=== PATIENT | male | born 1970 | race Caucasian/White ===

== ENCOUNTER 2017-05-08 15:46 | Emergency (ER) | payer OTHER ==
[~2017-05-08] VITALS: Ht 175.3 cm; Wt 100.0 kg
[2017-05-08 15:48] VITALS: TEMP 36.4; Ht 175.3 cm; Wt 100.0 kg
[2017-05-08] MEDS ORDERED: ASPIRIN 81 MG CHEW PO STA (15:56)
--- NOTE | 2017-05-08 16:05 | EMERGENCY ROOM VISIT NOTE ---
History Report prepared by H[place]yin: Tierney Brice Under the Supervision of: Dr. Corby Hahn D.O. 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 The patient describes the pain as achy. He reports he got "a weird feeling all over his body and thought he was going to throw up." He denies any calf pain or abdominal pain, He states he has had head pain, thigh pain, and arm pain since last night. 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 Positive head pain, thigh pain, and arm pain. Review of Systems See HPI for pertinent positives & negatives. A total of 10 systems reviewed and were otherwise negative. Family History No pertinent family history Social History Smoking Status: Unknown if Ever Smoked Smokeless Tobacco Use: Yes Occupation Status: employed Current/Historical Medications Scheduled Buprenorphine Hcl-Naloxone Hcl (Suboxone 8-2 Mg), 1 DOSE UT BID Duloxetine Hcl (Cymbalta), 60 MG PO DAILY Allergies Coded Allergies: BEE STING (Verified Allergy, Unknown, Unknown, 05/08/17) Physical Exam Vital Signs Date Time Temp Pulse Resp B/P (MAP) Pulse Ox O2 Delivery O2 Flow Rate FiO2 05/08/17 19:48 76 20 132/82 98 05/08/17 17:41 76 20 132/82 98 Nasal Cannula 2.0 05/08/17 16:57 79 05/08/17 16:22 97 Nasal Cannula 2.0 05/08/17 16:09 88 20 141/99 93 Room Air 05/08/17 16:07 100 Room Air 05/08/17 16:04 100 Room Air 05/08/17 15:48 36.4 71 18 144/109 96 Room Air Physical Exam GENERAL: Patient is awake, alert, and in no acute distress. Patient is resting comfortably and is slightly anxious. EYES: The conjunctivae are clear. The pupils are round and reactive. EARS, NOSE, MOUTH AND THROAT: The nose is without any evidence of any deformity. Mucous membranes are moist tongue is midline NECK: The neck is nontender and supple. RESPIRATORY: Normal respiratory effort is noted there is no evidence of wheezing rhonchi or rales CARDIOVASCULAR: Regular rate and rhythm noted there no murmurs rubs or gallops normal S1 normal S2 GASTROINTESTINAL: The abdomen is soft. Bowel sounds are present in all quadrants. Abdomen is nontender MUSCULOSKELETAL/EXTREMITIES: There is no evidence of gross deformity full range of motion is noted in the hips and shoulders SKIN: Tenderness to the medial aspect of the left upper thigh. No erythema was noted. No calf tenderness or pedal edema appreciated. Pulses were symmetric in the lower extremities. . NEUROLOGIC: Patient is awake alert and oriented x3 strength is symmetric patellar reflexes are 2+ bilaterally Medical Decision & Procedures ER Provider Diagnostic Interpretation: Radiology results as stated below per my review and radiologist interpretation: VENOUS DOPP LOWER EXT UNILAT CLINICAL HISTORY: 46 years-old Male presenting with left thigh pain. TECHNIQUE: Real-time grayscale and color and spectral Doppler ultrasound imaging of the veins of the left lower extremity was performed. Compression and augmentation were also utilized. COMPARISON: None. FINDINGS: Left: Common femoral vein: Patent. Greater saphenous vein: Patent. Deep femoral vein: Patent. Femoral vein: Patent. Popliteal vein: Patent. Calf veins: Patent. Other: None. IMPRESSION: No evidence of deep venous thrombosis. Electronically signed by: Kayden Aponte M.D. 05/08/2017 4:44 PM Dictated Date/Time: 05/08/2017 4:44 PM CHEST ONE VIEW PORTABLE CLINICAL HISTORY: 46 years-old Male presenting with EVALUATE RESPIRATORY DISTRESS.DYSPNEA. TECHNIQUE: Portable upright AP view of the chest was obtained. COMPARISON: None. FINDINGS: Cardiomediastinal silhouette normal. Lungs and pleural spaces clear. Osseous structures normal. Upper abdomen normal. IMPRESSION: 1. No acute cardiopulmonary disease. Electronically signed by: Kayden Aponte M.D. 05/08/2017 4:11 PM Dictated Date/Time: 05/08/2017 4:11 PM L LOWER EXTREMITY WITH CLINICAL HISTORY: left thigh pain trauma. Pain. TECHNIQUE: Transaxial acquisition with multi axial reformatted images. COMPARISON STUDY: None FINDINGS: Small cortical evulsion from the lateral superior aspect of the anterior acetabulum. Fragment measures 6 x 4 mm. No additional acute bony abnormality is identified. All major soft tissue structures are unremarkable. The bladder is midline. No free fluid is seen within the pelvic cul-de-sac. Muscular and osseous structures 5. Unremarkable. Left hip specifically is unremarkable. IMPRESSION: 1. Small cortical evulsion from the lateral superior aspect of the anterior acetabulum. 2. The cortical fragment measures 6 x 4 mm. 3. All remaining components of the study are unremarkable. The above report was generated using voice recognition software. It may contain grammatical, syntax or spelling errors. Electronically signed by: Leo Michelle M.D. 05/08/2017 5:45 PM Dictated Date/Time: 05/08/2017 5:37 PM Laboratory Results 05/08/17 16:02 Red Blood Count 5.15, Mean Corpuscular Volume 90.3, Mean Corpuscular Hemoglobin 32.6, Mean Corpuscular Hemoglobin Concent 36.1, Mean Platelet Volume 8.8, Neutrophils (%) (Auto) 54.3, Lymphocytes (%) (Auto) 36.5, Monocytes (%) (Auto) 7.3, Eosinophils (%) (Auto) 1.2, Basophils (%) (Auto) 0.2, Neutrophils # (Auto) 6.21, Lymphocytes # (Auto) 4.17, Monocytes # (Auto) 0.84, Eosinophils # (Auto) 0.14, Basophils # (Auto) 0.02 05/08/17 16:02 Test 05/08/17 16:02 05/08/17 16:05 White Blood Count 11.44 K/uL (4.8-10.8) Red Blood Count 5.15 M/uL (4.7-6.1) Hemoglobin 16.8 g/dL (14.0-18.0) Hematocrit 46.5 % (42-52) Mean Corpuscular Volume 90.3 fL (80-100) Mean Corpuscular Hemoglobin 32.6 pg (25-34) Mean Corpuscular Hemoglobin Concent 36.1 g/dl (32-36) Platelet Count 259 K/uL (130-400) Mean Platelet Volume 8.8 fL (7.4-10.4) Neutrophils (%) (Auto) 54.3 % Lymphocytes (%) (Auto) 36.5 % Monocytes (%) (Auto) 7.3 % Eosinophils (%) (Auto) 1.2 % Basophils (%) (Auto) 0.2 % Neutrophils # (Auto) 6.21 K/uL (1.4-6.5) Lymphocytes # (Auto) 4.17 K/uL (1.2-3.4) Monocytes # (Auto) 0.84 K/uL (0.11-0.59) Eosinophils # (Auto) 0.14 K/uL (0-0.5) Basophils # (Auto) 0.02 K/uL (0-0.2) RDW Standard Deviation 43.3 fL (36.4-46.3) RDW Coefficient of Variation 13.2 % (11.5-14.5) Immature Granulocyte % (Auto) 0.5 % Immature Granulocyte # (Auto) 0.06 K/uL (0.00-0.02) Erythrocyte Sedimentation Rate 23 mm/hr (0-14) Prothrombin Time 10.0 SECONDS (9.0-12.0) Prothromb Time International Ratio 1.0 (0.9-1.1) Activated Partial Thromboplast Time 24.5 SECONDS (21.0-31.0) Partial Thromboplastin Ratio 0.9 Anion Gap 7.0 mmol/L (3-11) Est Creatinine Clear Calc Drug Dose 140.9 ml/min Estimated GFR () 127.2 Estimated GFR (Non- 109.8 BUN/Creatinine Ratio 16.1 (10-20) Calcium Level 9.0 mg/dl (8.5-10.1) Total Bilirubin 0.5 mg/dl (0.2-1) Aspartate Amino Transf (AST/SGOT) 16 U/L (15-37) Alanine Aminotransferase (ALT/SGPT) 33 U/L (12-78) Alkaline Phosphatase 90 U/L (45-117) C-Reactive Protein 2.36 mg/dl (0-0.29) Total Protein 7.7 gm/dl (6.4-8.2) Albumin 3.8 gm/dl (3.4-5.0) Globulin 3.9 gm/dl (2.5-4.0) Albumin/Globulin Ratio 1.0 (0.9-2) Bedside D-Dimer 279 ng/mlFEU (0-450) Bedside Troponin I < 0.030 ng/ml (0-0.045) Laboratory results per my review. Medications Administered Medications (Trade) Dose Ordered Sig/Daniel Route Start Time Stop Time Status Last Admin Dose Admin Aspirin (Aspirin Chew) 324 mg NOW STAT PO 05/08/17 15:56 05/08/17 15:59 DC 05/08/17 16:16 324 MG ECG Per My Interpretation Indication: chest pain Rate (beats per minute): 98 Rhythm: normal sinus Findings: PVC, other (No ST segment abnormalities) Comparison ECG Date: no prior available Change: Repeat EKG: Normal sinus rhythm, 67 beats per minute, no PVCs, no acute ST segments, no change from earlier tracing ED Course 155: The patient was evaluated in room B10. A complete history and physical examination were performed. 155: Aspirin 324 mg 165: I checked on the patient at this time. I discussed his results with him and he was agreeable for more testing. 1920: Upon reevaluation, the patient is content and agreeable. I discussed the results and treatment plan with him. He verbalized agreement of the treatment plan. He was discharged home. Medical Decision Prior records/ancillary studies reviewed. Triage Nursing notes reviewed. The patient's history was concerning for chest pain. Differential diagnosis: Etiologies such as cardiac ischemia, aortic dissection, pulmonary embolism, pneumonia, pneumothorax, musculoskeletal, infections, pericarditis, myocarditis , esophageal rupture, gastrointestinal, as well as others were entertained. The patient is a 46-year-old male who presented to the emergency department for chest pain. The patient had a brief onset of chest pain which was resolved spontaneously. The patient also complained of left inner thigh pain. The patient had mildly elevated inflammatory markers. His pain was not positional. I discussed the patient's laboratory and radiographic studies with him. I also discussed the limitations of the emergency department workup for chest pain with him. At this time he does not appear to have any definite signs of acute coronary syndrome based on serial EKG as well as multiple troponin measurements. He was encouraged to rest and avoid any strenuous activity. I also discussed follow-up with the patient and recommended that he call his primary care physician in the morning to discuss further workup such as stress testing and return to the emergency department immediately if symptoms change worsening the need arises. Medication Reconcilliation Current Medication List: was personally reviewed by me Blood Pressure Screening Patient's blood pressure: Elevated blood pressure Blood pressure disposition: Elevated BP felt to be situational Impression Primary Impression: Chest pain Scribe Attestation The scribe's documentation has been prepared under my direction and personally reviewed by me in its entirety. I confirm that the note above accurately reflects all work, treatment, procedures, and medical decision making performed by me. Departure Information Dispostion Home / Self-Care Referrals No Doctor, Assigned (PCP) Forms Call Back Authorization, HOME CARE DOCUMENTATION FORM, IMPORTANT VISIT INFORMATION Patient Instructions My [facility] Additional Instructions Continue all medications as prescribed. Call your family doctor to schedule a follow-up appointment. Rest and avoid any strenuous activity. Return to the emergency department immediately if symptoms change worsen or the need arises. Problem Qualifiers Primary Impression: Chest pain Chest pain type: unspecified Qualified Codes: R07.9 - Chest pain, unspecified
--- NOTE | 2017-05-08 16:13 | DIAGNOSTIC IMAGING REPORT ---
CHEST ONE VIEW PORTABLE CLINICAL HISTORY: 46 years-old Male presenting with EVALUATE RESPIRATORY DISTRESS.DYSPNEA. TECHNIQUE: Portable upright AP view of the chest was obtained. COMPARISON: None. FINDINGS: Cardiomediastinal silhouette normal. Lungs and pleural spaces clear. Osseous structures normal. Upper abdomen normal. IMPRESSION: 1. No acute cardiopulmonary disease. Electronically signed by: Kayden Aponte M.D. 05/08/2017 4:11 PM Dictated Date/Time: 05/08/2017 4:11 PM
[2017-05-08 16:17] LABS: BASO % 0.2 %; BASO ABS # 0.02 K/uL (0-0.2); EOS % 1.2 %; EOS ABS # 0.14 K/uL (0-0.5); HEMATOCRIT 46.5 % (42-52); HEMOGLOBIN 16.8 g/dL (14.0-18.0); IG# 0.06 K/uL (0.00-0.02); LYMPH % 36.5 %; LYMPH ABS # 4.17 K/uL (1.2-3.4); MEAN CELL VOLUME 90.3 fL (80-100); MEAN CORPUSCULAR HEMOGLOBIN 32.6 pg (25-34); MEAN CORPUSCULAR HGB CONC 36.1 g/dl (32-36); MEAN PLATELET VOLUME 8.8 fL (7.4-10.4); MONO % 7.3 %; MONO ABS # 0.84 K/uL (0.11-0.59); NEUT % 54.3 %; NEUT ABS # 6.21 K/uL (1.4-6.5); PLATELET COUNT 259 K/uL (130-400); RED CELL DISTRIBUTION WIDTH CV 13.2 % (11.5-14.5); RED CELL DISTRIBUTION WIDTH SD 43.3 fL (36.4-46.3); WHITE BLOOD COUNT 11.44 K/uL (4.8-10.8)
[2017-05-08 16:22] VITALS: O2SAT 97
[2017-05-08 16:22] LABS: PTT PATIENT 24.5 SECONDS (21.0-31.0)
[2017-05-08] MEDS ORDERED: DULO60CA44 PO (16:23)
[2017-05-08] MEDS ORDERED: BUPR1SUB23 UT (16:23)
[2017-05-08 16:35] LABS: ALBUMIN 3.8 gm/dl (3.4-5.0); POTASSIUM 3.4 mmol/L (3.5-5.1)
[2017-05-08 16:38] LABS: CREATININE 0.78 mg/dl (0.60-1.40)
[2017-05-08 16:41] LABS: TOTAL PROTEIN 7.7 gm/dl (6.4-8.2)
--- NOTE | 2017-05-08 16:45 | DIAGNOSTIC IMAGING REPORT ---
VENOUS DOPP LOWER EXT UNILAT CLINICAL HISTORY: 46 years-old Male presenting with left thigh pain. TECHNIQUE: Real-time grayscale and color and spectral Doppler ultrasound imaging of the veins of the left lower extremity was performed. Compression and augmentation were also utilized. COMPARISON: None. FINDINGS: Left: Common femoral vein: Patent. Greater saphenous vein: Patent. Deep femoral vein: Patent. Femoral vein: Patent. Popliteal vein: Patent. Calf veins: Patent. Other: None. IMPRESSION: No evidence of deep venous thrombosis. Electronically signed by: Kayden Aponte M.D. 05/08/2017 4:44 PM Dictated Date/Time: 05/08/2017 4:44 PM
[2017-05-08] MEDS ORDERED: OPTIRAY 320 IV PRN (17:15)
--- NOTE | 2017-05-08 17:46 | DIAGNOSTIC IMAGING REPORT ---
L LOWER EXTREMITY WITH CLINICAL HISTORY: left thigh pain trauma. Pain. TECHNIQUE: Transaxial acquisition with multi axial reformatted images. COMPARISON STUDY: None FINDINGS: Small cortical evulsion from the lateral superior aspect of the anterior acetabulum. Fragment measures 6 x 4 mm. No additional acute bony abnormality is identified. All major soft tissue structures are unremarkable. The bladder is midline. No free fluid is seen within the pelvic cul-de-sac. Muscular and osseous structures 5. Unremarkable. Left hip specifically is unremarkable. IMPRESSION: 1. Small cortical evulsion from the lateral superior aspect of the anterior acetabulum. 2. The cortical fragment measures 6 x 4 mm. 3. All remaining components of the study are unremarkable. The above report was generated using voice recognition software. It may contain grammatical, syntax or spelling errors. Electronically signed by: Leo Michelle M.D. 05/08/2017 5:45 PM Dictated Date/Time: 05/08/2017 5:37 PM
[2017-05-08 19:48] VITALS: BP 132/82; PULSE 76; O2SAT 98
== END 2017-05-08 19:49 | disposition home or self-care (01) ==
LOC: C.EDB 15:48
DX: R07.9 Chest pain, unspecified (principal); I49.3 Ventricular premature depolarization; Z91.030 Bee allergy status